=== PATIENT | female | born 1980 | race American Indian/Alaskan Native ===

== ENCOUNTER 2017-05-09 11:08 | Emergency (ER) | payer MEDICAID, MEDICARE ==
[2017-05-09 11:34] VITALS: BP 121/73
--- NOTE | 2017-05-09 12:19 | Emergency Department Report ---
Upper Extremity - HPI Chief Complaint: Extremity Injury, Upper Stated Complaint: RIGHT ARM INJURY Time Seen by Provider: 05/09/17 12:19 Upper Extremity: Right Shoulder (pain, flare up of rheumatoid arthritis), Right Arm (pain), Right Elbow (pain), Right Forearm (pain), Right Wrist (pain), Right Hand (pain), Right Thumb (pain), Right Index Finger (pain), Right Middle Finger (pain), Right Ring Finger (pain), Right Little Finger (pain) Occurred When: 2 Days Mechanism: Other (RA flare) Severity: severe (10/10 achy in from shoulder to fingers on right upper extremity.) Symptoms: Yes Pain with Movement (right upper extremity), Yes Deformity (right hand), Yes Limited Range of Movement (right hand), No Numbness, No Weakness, No Swelling, No Bruising/Ecchymosis, No Laceration or Abrasion Other History: pt reports cerebral for rheumatoid arthritis 2 days. She said that she was getting her insurance corrected and she was not able to see a doctor until she gets her insurance so now she does not have a doctor to follow for rheumatoid arthritis. She said the weather is getting cold and when it happens to her rheumatoid arthritis starts to act up. She is complaining of pain that is achy in to her right upper extremity from shoulder to fingers. Pain is 10 out of 10. She states she came to the emergency room for pain management because she does not have anything for pain. She denies any fever or chills. Denies any nausea or vomiting. Denies any trauma to right upper extremity.. Pain is better rest and worse with movement. ED Review of Systems ROS: Stated complaint: RIGHT ARM INJURY Other details as noted in HPI Comment: All other systems reviewed and negative Constitutional: no symptoms reported Respiratory: no symptoms reported Cardiovascular: denies: chest pain, palpitations, edema, syncope Gastrointestinal: denies: abdominal pain, nausea, vomiting, diarrhea Musculoskeletal: joint swelling, arthralgia. denies: back pain, myalgia Skin: denies: rash Neurological: denies: headache, numbness, paresthesias, confusion, abnormal gait , vertigo ED Past Medical Hx - Past Medical History Previous Medical History?: Yes Hx Hypertension: Yes Hx Arthritis: Yes (RHEUMATOID) Hx Psychiatric Treatment: Yes (bipolar / SCHIZOPHRENIA) Hx Asthma: Yes - Surgical History Past Surgical History?: Yes Additional Surgical History: right arm surgery. CARDIAC ABLATION - Family History Family history: hypertension - Social History Smoking Status: Current Every Day Smoker Substance Use Type: None - Medications Home Medications: Home Medications Medication Instructions Recorded Confirmed Last Taken Type ALBUTEROL Inhaler [ProAir HFA 2 puff IH QID PRN #1 inhalation 04/29/16 Unknown Rx Inhaler] Prednisone [predniSONE 10 mg 10 mg PO .TAPER #1 tab.ds.pk 04/29/16 Unknown Rx (6-Day Pack, 21 Tabs)] Acetaminophen/Codeine [Tylenol 1 tab PO Q6H PRN 3 Days #12 tab 05/09/17 Unknown Rx /Codeine # 3 tab] Naproxen [Naprosyn TAB] 500 mg PO BID PRN 8 Days #16 tablet 05/09/17 Unknown Rx methylPREDNISolone [Medrol] 4 mg PO QAM 6 Days #1 tab.ds.pk 05/09/17 Unknown Rx Upper Extremity Exam - Exam General: Vital signs noted. No distress. Alert and acting appropriately. This is a 37-year-old female well-nourished well-developed in no acute distress. Head and Torso: No HEENT Abnormality (normal exam), No Neck Tenderness (normal exam), No Chest/Lungs Abnormality (normal exam), No Abdominal Tenderness ( normal exam), No Back Tenderness (normal exam) Shoulder Exam: Yes Normal Range of Motion in Shoulder (skin able to move her right shoulder but she reports that it hurts with active range of motion. No crepitus, effusion, abrasion or laceration.), No Shoulder Tenderness (normal exam), No Clavicle Tenderness, No Shoulder Deformity (all obvious deformity noted. No erythema or effusion), No AC Joint Tenderness Arm Exam: No Arm/Humerus Tenderness, No Arm Deformity Elbow: Yes Elbow Tenderness (no crepitus, erythema or effusion.), Yes Normal Range of Motion in Elbow, No Elbow Deformity Forearm: No Forearm Tenderness, No Forearm Deformity, No Pain with Pronation, No Pain with Supination Wrist: Yes Wrist Tenderness (right wrist due to rheumatoid flare), Yes Normal ROM in Wrist (patient with full range of motion to right wrist but she said it hurts with movement), No Wrist Deformity, No Snuffbox Tenderness, No Pain with Axial Thumb Compression Hand: Yes Hand Tenderness (right hand tender to palpate without any signs of erythema or infection), Yes Hand Deformity (deformity in metacarpal bone), Yes Digit Tenderness (tenderness to palpate the digits on the right hand, she has been seen to metacarpal bone area from RA), Yes Normal ROM in Digit(s) (patient able to move her right hand but she said it is very painful. No erythema.), Yes Digit(s) Deformity (patient would PIP and MIP joints swelling.), No Tendon Dysfunction CMS Exam: Yes Normal Distal Pulses, Yes Normal Capillary Refill, Yes Normal Distal Sensation, No Broken Skin ED Course Vital Signs 05/09/17 11:31 Temperature 98.7 F Pulse Rate 66 Respiratory 18 Rate Blood Pressure 121/73 O2 Sat by Pulse 100 Oximetry - Reevaluation(s) Reevaluation #1: 05/09/17 14:00 Patient given Decadron 6 mg IM and Toradol 30 mg IM in emergency room which helped her pain. I discussed with her that I could only give her a small amount of medication which will be Tylenol No. 3 and also will give her naproxen as needed for pain. I discussed with her she needs to call [facility] and schedule appointment for follow-up visit and when she gets her insurance she needs to have them refer her to our slasher to manage her chronic rheumatoid arthritis pain. ED Medical Decision Making - Medical Decision Making ED course: Patient here for management of pain and reports in rheumatoid arthritis flare and right upper extremity. Physical findings for PIP and MIP joint swelling with right metacarpal bone shift and an deformity from rheumatoid arthritis. She has normal pulses 2+ extremities. No compromise to neurovascular system. Patient was given Decadron 10 mg IM and Toradol 30 mg IM in emergency room to manage pain which brought her pain down to a 3 out of 10. Treatment plan and diagnosis with follow-up discussed patient and she voiced understanding. Patient discharged home a prescription for naproxen, Medrol Dosepak and Tylenol 3 and to follow-up at [facility]. Critical care attestation.: If time is entered above; I have spent that time in minutes in the direct care of this critically ill patient, excluding procedure time. ED Disposition Clinical Impression: Rheumatoid arthritis flare, Arthralgia of multiple sites Disposition: TO HOME OR SELFCARE Is pt being admited?: No Does the pt Need Aspirin: No Condition: Stable Instructions: Prednisone (By mouth), Rheumatoid Arthritis (ED), Arthralgia (ED) Additional Instructions: Please state medication as prescribed Follow-up with [facility] and have them refer you to her slasher when necessary. Take medication as prescribed. do not drive or operate heavy machinery while taking Tylenol No. 3 as this medication causes drowsiness Increase your fluid intake Prescriptions: Acetaminophen/Codeine [Tylenol /Codeine # 3 tab] 1 tab PO Q6H PRN 3 Days #12 tab PRN Reason: Pain, Moderate (4-6) methylPREDNISolone [Medrol] 4 mg PO QAM 6 Days #1 tab.ds.pk Naproxen [Naprosyn TAB] 500 mg PO BID PRN 8 Days #16 tablet PRN Reason: Pain Referrals: [facility] [Outside] - 05/10/17 Forms: Accompanied Note, Work/School Release Form(ED)
[2017-05-09] MEDS ORDERED: DECADRON IM STA (12:55)
[2017-05-09] MEDS ORDERED: TORADOL IM ONE (13:03)
== END 2017-05-09 14:15 | disposition home or self-care (01) ==
LOC: ED 11:08
DX: M06.9 Rheumatoid arthritis, unspecified (principal); M25.50 Pain in unspecified joint; I10 Essential (primary) hypertension; J45.909 Unspecified asthma, uncomplicated; F17.200 Nicotine dependence, unspecified, uncomplicated
CPT/HCPCS: 96372; 99282; J1100; J1885